=== PATIENT | female | born 2000 | race African-American/Black ===

== ENCOUNTER 2021-11-01 20:01 | Emergency (ER) | payer MEDICAID ==
[~2021-11-01] VITALS: Ht 172.7 cm; Wt 110.0 kg
[2021-11-01] MEDS ORDERED: ACETAMINOPHEN 160 MG/5 ML UD CUP PO ONE (21:45)
[2021-11-01] MEDS ORDERED: DEXAMETHASONE 0.5MG/5ML ORAL SYR PO ONE (21:45)
[2021-11-01] MEDS ORDERED: IBUPROFEN 100MG/5ML UDC PO ONE (21:45)
[2021-11-01 22:15] VITALS: BP 148/90
[2021-11-01] MEDS ORDERED: DEXAMETHASONE 4MG TABLET PO SCH (22:15)
[2021-11-01] MEDS ORDERED: ACETAMINOPHEN 650MG/20.3ML UDC PO SCH (22:15)
[2021-11-01] MEDS ORDERED: IBUPROFEN 400MG TABLET PO SCH (22:15)
[2021-11-02] MEDS ORDERED: ACET-2084 MT (00:19)
[2021-11-02] MEDS ORDERED: IBUP-2458 MT (00:19)
== END 2021-11-02 02:42 | disposition home or self-care (01) ==
LOC: ER 20:01
DX: J02.9 Acute pharyngitis, unspecified (principal); F41.9 Anxiety disorder, unspecified; E66.01 Morbid (severe) obesity due to excess calories; Z20.822 Contact with and (suspected) exposure to COVID-19; Z68.36 Body mass index [BMI] 36.0-36.9, adult
CPT/HCPCS: 87070; 87426; 87430; 87804; 99284; J8540